=== PATIENT | male | born 1955 | race Caucasian/White ===

== ENCOUNTER 2020-11-01 09:09 | Observation (INO) ==
[2020-11-01] MEDS ORDERED: Isovue-370 500 ML BOTTLE IVP ONE (09:20)
[2020-11-01 10:33] LABS: Hematocrit 39.3 % (37.5-50.1); Hemoglobin 13.2 g/dL (12.9-16.9); Mean Corpuscular HGB Conc 33.6 g/dL (31.6-35.5); Mean Corpuscular Hemoglobin 29.8 pg (28.0-33.3); Mean Corpuscular Volume 88.7 fL (83.0-100.0); Mean Platelet Volume 9.3 fL (9.4-12.4); Platelet Count 232 K/mcL (140-400); Red Blood Count 4.43 M/mcL (4.19-5.50); Red Cell Distribution Width 12.9 % (11.5-14.5)
[2020-11-01 10:51] LABS: INR 1.2; Prothrombin Time 13.7 Seconds (9.4-12.1)
[2020-11-01 10:54] LABS: Activated Partial Thrombo Time 30.6 Seconds (26.0-36.0)
[2020-11-01 10:55] LABS: BUN/Creatinine Ratio 12 (6-26); Blood Urea Nitrogen 12 mg/dL (8-23); Carbon Dioxide 25 mEq/L (23-29); Chloride 105 mEq/L (98-107); Glucose 93 mg/dL (70-105); Osmolality,Calculated 291 (280-300); Potassium 4.3 mEq/L (3.5-5.1); Sodium 141 mEq/L (136-145); eGFR For African Americans > 60 (> 60); eGFR For Non-African Americans > 60 (> 60)
[2020-11-01 10:56] LABS: Troponin I < 0.03 ng/mL (< 0.04)
[2020-11-01 11:19] LABS: Bilirubin,Urine Negative (Negative); Blood,Urine Negative (Negative); Clarity,Urine Clear (Clear); Color,Urine Colorless (Yellow); Glucose,Urine (UA) Normal (Normal); Ketones,Urine Negative (Negative); Leukocyte Esterase,Urine Negative (Negative); Nitrite,Urine Negative (Negative); Protein,Urine Trace mg/dL (Neg-Trace); Specific Gravity,Urine > 1.030 (1.010-1.025); Urobilinogen,Urine Normal (Normal)
[2020-11-01] MEDS ORDERED: Aspirin 81 MG TAB.CHEW PO ONE (11:50)
[2020-11-01] MEDS ORDERED: Perflutren Lipid Microsphere 1.3 ML in 0.9 % Sodium Chloride 8.7 ML IVP PRN (11:56)
[2020-11-01] MEDS ORDERED: Mag Hydrox/Al Hydrox/Simeth 30 ML UDC PO PRN (11:56)
[2020-11-01] MEDS ORDERED: Ondansetron ODT 4 MG TAB.RAPDIS SL PRN (11:56)
[2020-11-01] MEDS ORDERED: Melatonin 3 MG TABLET PO PRN (11:56)
[2020-11-01] MEDS ORDERED: Naloxone 0.4 MG/ML INJ IVP PRN (11:56)
[2020-11-01 13:56] LABS: Thyroid Stimulating Hormone 2.779 mcIU/mL (0.340-5.600)
[2020-11-02 05:16] LABS: Hematocrit 38.9 % (37.5-50.1); Mean Corpuscular HGB Conc 33.4 g/dL (31.6-35.5); Mean Corpuscular Hemoglobin 29.4 pg (28.0-33.3); Platelet Count 199 K/mcL (140-400); Red Blood Count 4.42 M/mcL (4.19-5.50); Red Cell Distribution Width 12.7 % (11.5-14.5); White Blood Count 5.4 K/mcL (4.3-11.1)
[2020-11-02 05:26] LABS: INR 1.2; Prothrombin Time 14.1 Seconds (9.4-12.1)
[2020-11-02 05:42] LABS: Alanine Aminotransferase 13 Units/L (7-52); Albumin 3.9 g/dL (3.5-5.7); Albumin/Globulin Ratio 1.8 (1.1-2.2); Alkaline Phosphatase 74 Units/L (34-104); Aspartate Amino Transferase 16 Units/L (13-39); BUN/Creatinine Ratio 12 (6-26); Bilirubin,Total 0.6 mg/dL (0.3-1.0); Blood Urea Nitrogen 12 mg/dL (8-23); Calcium 8.7 mg/dL (8.6-10.3); Carbon Dioxide 23 mEq/L (23-29); Chloride 106 mEq/L (98-107); Chol/HDL Ratio 4.6 (0-4.9); Cholesterol 213 mg/dL (< 200); Globulin 2.2 g/dL (2.4-3.5); Glucose 101 mg/dL (70-105); HDL Cholesterol 46 mg/dL (40-59); LDL Cholesterol,Calculated 126 mg/dL (< 100); Osmolality,Calculated 286 (280-300); Sodium 138 mEq/L (136-145); Total Protein 6.1 g/dL (6.4-8.9); Triglycerides 203 mg/dL (< 150); Troponin I < 0.03 ng/mL (< 0.04); eGFR For African Americans > 60 (> 60); eGFR For Non-African Americans > 60 (> 60)
[2020-11-02 07:57] LABS: Estimated Average Glucose 128 mg/dl; Hemoglobin A1C 6.1 %
[2020-11-02] MEDS ORDERED: Magnesium Oxide 400 MG TABLET PO SCH (09:00)
[2020-11-02] MEDS ORDERED: lisinopriL 10 MG TABLET PO SCH (09:00)
[2020-11-02] MEDS ORDERED: Cholecalciferol (D-3) 1,000 UNIT (25MCG) TABLET PO SCH (09:00)
[2020-11-02 10:55] VITALS: BP 128/72
== END 2020-11-02 14:16 | disposition home or self-care (01) ==
LOC: SUATTDRO → EMEROOARM 09:09 → 3BNU 09:09 → SUATTDRO 13:55 → 3BNU 14:30
PROVIDERS: ADMIT Family Medicine; ATTEND Family Medicine